=== PATIENT | male | born 1955 | race Caucasian/White ===

== ENCOUNTER → 2024-03-26 | Outpatient (CLI) | payer MEDICARE, BC ==
[~2024-03-26] MED LIST: ASPI81CH PO; ATOR40TA PO; Nexium40 MG PO; Prinivil10 MG PO; Prozac40 MG PO
== END | disposition home or self-care (01) ==
LOC: LAB SHORT 03-26 07:49 → LAB 07:49 → LAB SHORT 07:49
DX: L60.2 Onychogryphosis (principal); B35.1 Tinea unguium
CPT/HCPCS: 88305; 88312

== ENCOUNTER → 2024-10-15 | Outpatient (CLI) | payer MEDICARE | LOC: LAB 13:24 → LAB SHORT 13:24 | DX: L91.8 Other hypertrophic disorders of the skin (principal) | CPT/HCPCS: 88305 ==